=== PATIENT | male | born 1945 | race Hispanic/Latino ===

== ENCOUNTER 2018-12-21 06:29 | Day surgery (SDC) | payer MEDICARE ==
[2018-12-16 12:17] VITALS: BMI 34.4
[2018-12-21] MEDS ORDERED: Ciprofloxacin 400mg/200ml D5W 400 MG/200 ML BAG IVPB ONE (07:32)
[2018-12-21] MEDS ORDERED: Lidocaine 2% Jelly (Uro-Jet) ONE (07:33)
[2018-12-21] MEDS ORDERED: Propofol 10 mg/ml Inj (20 ML) ONE (08:07)
[2018-12-21] MEDS ORDERED: Midazolam 2 MG/2 ML VIAL ONE (08:07)
[2018-12-21] MEDS ORDERED: Phenylephrine 10 mg/ml Inj ONE (08:22)
[2018-12-21] MEDS: HYDROmorphone 0.5 mg/0.5 ml ISec IVP PRN ×2 (10:08→10:25)
[2018-12-21] MEDS ORDERED: Lactated Ringer's 1,000 ML IV ONE (10:09)
[2018-12-21 11:16] VITALS: RESP 18; O2SAT 95
[2018-12-21] MEDS ORDERED: oxyCODONE 30 mg Immediate Release Tab PO STA (13:02)
[2018-12-21 14:00] VITALS: BP 162/72; PULSE 72; TEMP 97.6
--- NOTE | 2018-12-22 05:59 | OP ---
PROCEDURE DATE: 12/21/2018 PREOPERATIVE DIAGNOSIS: Hematuria, multiple enlarged bladder tumors. POSTOPERATIVE DIAGNOSIS: Hematuria, multiple enlarged bladder tumors. PROCEDURE: Cystoscopy, transurethral resection of bladder tumor. ANESTHESIA: General LMA. BLOOD LOSS: Around 5 mL. DESCRIPTION OF PROCEDURE: While the patient in lithotomy position and after starting anesthesia, genitalia were prepped and draped in sterile fashion. The patient was given IV sedation and then LMA. The patient was given Cipro 400 IV piggyback. Cystoscopy revealed small stricture, which was dilated, large prostate, entering the bladder revealed the tumor invading the left trigone invading the bladder neck. Left lateral wall tumor with large posterior tumor and other small multiple tumor and some on the dome. After filling the bladder, the scope was removed, the urethra was dilated. Resectoscope sheath inserted. Resection done for the bladder neck. The tissue was sent separately. The right side is intact. No evidence of any tumor. Clear orifice. In the left side, the tumor extending to the lateral trigone and left lateral wall extending to the bladder neck to the prostate mucosa. All tissue irrigated out, base fulgurated. There is some oozing from the area. After that the lateral tumor was localized and resected. Posterior wall tumor, large over 2 cm, resected and the base was fulgurated. After irrigating all the tissue out, the bladder was emptied and the scope was removed. No catheter will be inserted. I will follow him in the recovery room. The patient was transferred in stable condition. Kolby Qiu MD
== END 2018-12-21 13:30 | disposition home or self-care (01) ==
LOC: C.SDS 06:29
PROVIDERS: ATTEND Specialist
DX: C67.0 Malignant neoplasm of trigone of bladder (principal); C67.2 Malignant neoplasm of lateral wall of bladder; C67.4 Malignant neoplasm of posterior wall of bladder; C67.1 Malignant neoplasm of dome of bladder; R31.9 Hematuria, unspecified
CPT/HCPCS: 52235; 82948; 88305; J0744; J1170